=== PATIENT | male | born 1990 | race Caucasian/White ===

== ENCOUNTER 2017-03-25 10:39 | Emergency (ER) | payer SELFPAY ==
[~2017-03-25] VITALS: Ht 180.3 cm; Wt 104.7 kg
[2017-03-25 10:41] VITALS: Ht 180.3 cm; Wt 104.7 kg
--- OUTSIDE RECORDS SUMMARY | 2017-03-25 10:44 | XMS REPORT ---
Author Author Garett Soares Organization [employer] Address Unknown Phone Unavailable Care Team Providers Care Visiting Nurse Name Role Phone Garett Soares CP Unavailable Allergies, Adverse Reactions, Alerts Substance Reaction Event Type penicillin Info Not Available Drug Allergy Problems Problem Type Condition ICD-9 Code Onset Dates Condition Status Assessment Depression 311 Active Medications Medication Code System Code Instructions Start Date End Date Status Dosage Citalopram Hydrobromide [facility] [id number] 20 MG Orally Once a day January as directed Procedures Procedure Coding System Code Date OFFICE VISIT NEW PT CPT-4 84540 January 20, 2015 Vital Signs Date/Time: January 20, 2015 Blood Pressure Systolic 118 mm Hg Height 70.5 in Weight 222 lbs BMI 31.40 Index Blood Pressure Diastolic 74 mm Hg Results No Known Results Summary Purpose [employer] Submission
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
--- OUTSIDE RECORDS SUMMARY | 2017-03-25 10:44 | XMS REPORT ---
Author Garett Orosco Organization [employer] Address Unknown Phone Unavailable Care Team Providers Care Straddle Bug Operator Name Role Phone Garett Soares CP Unavailable Allergies, Adverse Reactions, Alerts Substance Reaction Event Type penicillin Info Not Available Drug Allergy Problems Problem Type Condition Code Onset Dates Condition Status Assessment Anxiety 300.00 Active Medications No Known Medications Procedures Procedure Coding System Code Date OFFICE VISITEST PT CPT-4 15492 March 31, 2015 Vital Signs Date/Time: March 31, 2015 Blood Pressure Systolic 110 mm Hg Height 70.5 in Weight 222 lbs BMI 31.40 Index Blood Pressure Diastolic 64 mm Hg Results No Known Results Summary Purpose [employer] Submission
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
[2017-03-25] MEDS ORDERED: NO ROUTINE MEDS (10:50)
--- NOTE | 2017-03-25 10:53 | NUR ---
DR BAH IN
--- NOTE | 2017-03-25 11:25 | NUR ---
WOUND REPAIR DR BAH IN TO SUTURE LAC W 1% LIDO USED
--- NOTE | 2017-03-25 11:41 | ERPDOC ---
Departure Disposition Decision Date: March 25, 2017 Disposition Decision Time: 11:46 Disposition: 01 DISCHARGED HOME, SELF-CARE Impression Impression Impression: Primary Impression: Laceration of finger Encounter type: initial encounter Qualified Codes: S61.219A - Laceration without foreign body of unspecified finger without damage to nail, initial encounter Severity: Moderate Condition: Improved Seen By: Physician only Patient Instructions: Finger Laceration (ED) Problems/Meds/Labs Reviewed?: Yes Medications reviewed and manag: Yes Additional Instructions: Keep wound clean and dry. Remove sutures in 7-10 days. Follow up care ordered?: Yes Mental Status: Alert, Oriented HPI - Skin General General Chief Complaint: Laceration Stated Complaint: R FOREFINGER AND MIDDLE FINGER LAC Time Seen by Provider: 11:38 HPI - Skin General Initial Comments 26-year-old gentleman cut his hand while working in the garage with a kitchen knife. His hands are dirty, the knife was clean. He has no other injuries or complaints. Last tetanus was sometime prior to 2012. 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 Allergies: Coded Allergies: Penicillins (Verified Allergy, Mild, RASH, 03/25/17) Past History Patient Medical History Problem List Updates: Negative Patient Surgical History Negative Family History Family PMH: FOUND: hypertension Social History Smoking Status: Never smoker Substance Use Type: does not use Record Review Pertinent history updated: Yes Review of Systems Integumentary Skin: see HPI All other Systems All Other Systems: Reviewed and Negative Physical Exam General General Nourishment: well nourished, well developed, appears stated age, no acute distress Distress Description Patient stable, does have laceration of finger which is slowly bleeding. Vitals and Pain First Documented Vital Signs Date Time Temp Pulse Resp B/P Pulse Ox O2 Delivery O2 Flow Rate FiO2 03/25/17 10:41 97.8 78 16 122/73 96 Room Air Weight: Kilograms: 104.700 Height (feet): 5 Height (inches): 11.00 Triage Pain Scale: Normal Exams: Chest/Resp: Clear all key, with good airflow, and symmetry bilaterally CV: Regular rate and rhythm, without murmur or gallop, Pulses 2+ all extremities, capillary refill, <2 seconds all ext., no pedal edema noted Abdomen: Bowel sounds positive, soft, non-tender, non-distended, no hepatosplenomegaly, masses or bruits noted Neurologic: Patient is alert, and oriented, cranial nerves, motor/sensory/ cerebellar, exams w/o gross deficits, to observation Psychiatric: Patient exhibits, appropriate attention, emotion and affect Integumentary (brief) Comments 2 cm, dogeared laceration on the pad of finger. Shear laceration under cutting the pad. Differential Diagnoses Considering: Laceration Procedures Procedures Performed Procedures Performed: Laceration Repair Laceration/Wound Repair Wound/Laceration Repair : Wound Location: upper extremity Wound Length (cm): 2.5 Depth, Shape: subcutaneous Explored: clean Irrigated: saline Prep: betadine Anesthesia: 1% Lidocaine Volume Anesthetic (ccs): 6 Type of Block: digital Wound Debrided: moderate Wound Revision?: Yes Repaired With: Sutures Suture Size: 4:0 Suture Type: prolene Number of Sutures: 8 Layer Closure?: No Extensor Tendon Repair?: No Sterile Dressing Applied?: Yes Progress Anesthetized using digital block with 1% lidocaine 6 cc total Finger prepped and draped in sterile manner. Wound was cleaned. I did have the patient wash his hands carefully before and is he had a well increase on it. Progress Results/Orders Orders Procedure Category Date Status Time Tetanus,Diphth,A PHA 03/25/17 Transmitted Pertus (Tdap) (Adacel) 11:45 Neomycin/Polymyxin/Bacitracin PHA 03/25/17 Transmitted (Neosporin 11:45 Progress Progress T DTaP given to make sure patient is current. Wound repaired see progress note. Sutures to be pulled in 7-10 days. Steri-Strip was applied to third finger distal tip which had a 1 cm laceration. MARGI BAH MD March 25, 2017 11:41
[2017-03-25] MEDS ORDERED: TETANUS,DIPHTH,a PERTUS (Tdap) 0.5 ML VIAL IM ONE (11:45)
[2017-03-25] MEDS ORDERED: NEOMYCIN/POLYM/BACITR OINT PACKET TOP ONE (11:45)
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
[2017-03-25 12:00] VITALS: BP 120/66; PULSE 73; RESP 16; TEMP 98.4; O2SAT 95
[2017-03-25] MEDS ORDERED: LIDOCAINE 1% (10mg/ml) 30ml SDV INFIL ONE (12:00)
--- NOTE | 2017-03-25 12:00 | NUR ---
DISMISSED INSTRUCTIONS REVIEWED. DISCHARGED AMB
== END 2017-03-25 12:00 | disposition home or self-care (01) ==
LOC: ED 10:39
DX: S61.210A Laceration without foreign body of right index finger without damage to nail, initial encounter (principal); S61.212A Laceration without foreign body of right middle finger without damage to nail, initial encounter; W26.0XXA Contact with knife, initial encounter; Y93.89 Activity, other specified; Y92.015 Private garage of single-family (private) house as the place of occurrence of the external cause; Y99.8 Other external cause status
CPT/HCPCS: 90471; 90715